=== PATIENT | female | born 1950 | race Caucasian/White ===

== ENCOUNTER 2018-04-12 14:56 | Emergency (ER) | payer MEDICARE ==
[~2018-04-12] VITALS: Ht 162.6 cm; Wt 72.0 kg
[~2018-04-12 14:56] MED LIST changes: -AMIT10TA6 PO; -ATOR20TA15 PO; -LEVS0.123 PO; -LISI-519 PO; -METO1TAB9 PO; -PROM25TA10 PO; -VENL75XR PO
[2018-04-12 15:02] VITALS: BP 189/96; PULSE 91; RESP 18; TEMP 98; O2SAT 97
[2018-04-12] MEDS ORDERED: LEVS0.123 PO (15:26)
[2018-04-12] MEDS ORDERED: AMIT10TA6 PO (15:26)
[2018-04-12] MEDS ORDERED: ATOR20TA15 PO (15:26)
[2018-04-12] MEDS ORDERED: METO1TAB9 PO (15:26)
[2018-04-12] MEDS ORDERED: NEXI40CA PO (15:26)
[2018-04-12] MEDS ORDERED: VENL75XR PO (15:26)
[2018-04-12] MEDS ORDERED: PROM25TA10 PO (15:26)
[2018-04-12] MEDS ORDERED: LISI-519 PO (15:26)
--- NOTE | 2018-04-12 15:26 | PD ---
HPI Chief Complaint: Abnormal Results Time Seen by Provider: 15:09 Travel History International Travel<30 days: No Contact w/Intl Traveler<30days: No Traveled to known affect area: No History of Present Illness HPI 67-year-old female presents to the emergency department sent by her primary care physician, Dr. Maradiaga, for hyperkalemia. She states she had routine labs done yesterday which showed a potassium 6.0. She had her labs redone today which showed a potassium of 6.5. Patient denies any symptoms or complaints. No headache. No chest pain shortness breath. No abdominal pain for no nausea, vomiting, diarrhea. She denies any history of kidney disease. She has history of mitral valve replacement with mechanical valve, CABG, IBS. No symptoms or complaints at this time. Moderate severity. PFSH Past Medical History Anxiety: Yes Depression: Yes Cancer: No Cardiovascular Problems: Yes (MVP) High Cholesterol: Yes Chemotherapy: No Chest Pain: No Cerebrovascular Accident: No Diabetes: No Endocrine: No Gastrointestinal Disorders: Yes (IRRITABLE BOWEL) GERD: Yes Glaucoma: No Genitourinary: No Hepatitis: No Hiatal Hernia: Yes Hypertension: Yes Immune Disorder: Yes (PSORIASIS) Musculoskeletal: No Neurologic: Yes Psychiatric: No Reproductive: No Respiratory: No Integumentary: No Migraines: No Radiation Therapy: No Seizures: No Thyroid Disease: No ?: Not Menopausal: Yes Ovarian Cysts: Yes Past Surgical History Abdominal Surgery: No AICD: No Appendectomy: Yes Cardiac Surgery: No Ear Surgery: No Endocrine Surgery: No Eye Surgery: Yes (CATARACT) Genitourinary Surgery: No Gynecologic Surgery: Yes (1969'S EXP LAP OVARIAN CYST WITH APPENDECTOMY) Oral Surgery: No Pacemaker: No Thoracic Surgery: No Other Surgery: Yes (SINUS SURGERY) Social History Alcohol Use: Yes (WEEKLY) Tobacco Use: No (FORMER SMOKER) Substance Use: No Allergies-Medications (Allergen,Severity, Reaction): Coded Allergies: Sulfa (Sulfonamide Antibiotics) (Unverified Allergy, Mild, 04/12/18) Uncoded Allergies: MYCINS (Allergy, Mild, 01/12/08) Reported Meds & Prescriptions Reported Meds & Active Scripts Active Reported Phenergan (Promethazine HCl) 25 Mg Tablet 25 Mg PO Q6H PRN Levsin (Hyoscyamine Sulfate) 0.125 Mg Tab 0.125 Mg PO DAILY Nexium (Esomeprazole DR) 40 Mg Capdr 40 Mg PO DAILY Lisinopril 5 Mg Tab 5 Mg PO DAILY Metoprolol Succinate ER 24 HR (Metoprolol Succinate) 50 Mg Tab 50 Mg PO DAILY Atorvastatin (Atorvastatin Calcium) 20 Mg Tab 20 Mg PO HS Amitriptyline (Amitriptyline HCl) 10 Mg Tab 10 Mg PO HS Effexor XR 24 HR (Venlafaxine HCl) 75 Mg Cap 225 Mg PO DAILY Review of Systems Except as stated in HPI: all other systems reviewed are Neg Physical Exam Narrative GENERAL: Well-nourished, well-developed female patient, ambulatory. Afebrile. SKIN: Focused skin assessment warm/dry. HEAD: Normocephalic. Atraumatic. EYES: No scleral icterus. No injection or drainage. NECK: Supple, trachea midline. No JVD or lymphadenopathy. CARDIOVASCULAR: Regular rate and rhythm without murmurs, gallops, or rubs. RESPIRATORY: Breath sounds equal bilaterally. No accessory muscle use. Lung sounds are clear to auscultation. GASTROINTESTINAL: Abdomen soft, non-tender, nondistended. MUSCULOSKELETAL: No cyanosis, or edema. BACK: Nontender without obvious deformity. No CVA tenderness. Data Data Last Documented VS Vital Signs Date Time Temp Pulse Resp B/P (MAP) Pulse Ox O2 Delivery O2 Flow Rate FiO2 04/12/18 15:02 98.0 91 18 189/96 (127) 97 Orders Orders Electrocardiogram (04/12/18 15:14) Complete Blood Count With Diff (04/12/18 15:14) Comprehensive Metabolic Panel (04/12/18 15:14) Magnesium (Mg) (04/12/18 15:14) Prothrombin Time / Inr (Pt) (04/12/18 15:14) Act Partial Throm Time (Ptt) (04/12/18 15:14) Labs Laboratory Tests Test 04/12/18 15:20 White Blood Count 8.6 TH/MM3 Red Blood Count 4.10 MIL/MM3 Hemoglobin 12.2 GM/DL Hematocrit 37.1 % Mean Corpuscular Volume 90.4 FL Mean Corpuscular Hemoglobin 29.8 PG Mean Corpuscular Hemoglobin Concent 32.9 % Red Cell Distribution Width 14.2 % Platelet Count 335 TH/MM3 Mean Platelet Volume 8.3 FL Neutrophils (%) (Auto) 44.7 % Lymphocytes (%) (Auto) 42.3 % Monocytes (%) (Auto) 9.6 % Eosinophils (%) (Auto) 2.6 % Basophils (%) (Auto) 0.8 % Neutrophils # (Auto) 3.8 TH/MM3 Lymphocytes # (Auto) 3.6 TH/MM3 Monocytes # (Auto) 0.8 TH/MM3 Eosinophils # (Auto) 0.2 TH/MM3 Basophils # (Auto) 0.1 TH/MM3 CBC Comment DIFF FINAL Differential Comment Prothrombin Time 10.0 SEC Prothromb Time International Ratio 1.0 RATIO Activated Partial Thromboplast Time 26.8 SEC Blood Urea Nitrogen 17 MG/DL Creatinine 0.67 MG/DL Random Glucose 97 MG/DL Total Protein 7.0 GM/DL Albumin 3.6 GM/DL Calcium Level 8.8 MG/DL Magnesium Level 2.0 MG/DL Alkaline Phosphatase 79 U/L Aspartate Amino Transf (AST/SGOT) 20 U/L Alanine Aminotransferase (ALT/SGPT) 30 U/L Total Bilirubin 0.1 MG/DL Sodium Level 140 MEQ/L Potassium Level 4.0 MEQ/L Chloride Level 107 MEQ/L Carbon Dioxide Level 25.0 MEQ/L Anion Gap 8 MEQ/L Estimat Glomerular Filtration Rate 88 ML/MIN [facility] Medical Decision Making Medical Screen Exam Complete: Yes Emergency Medical Condition: Yes Medical Record Reviewed: Yes Differential Diagnosis Hyperkalemia versus renal disease versus EKG changes Narrative Course 67-year-old female presents to the emergency department sent by her primary care physician for hyperkalemia. She denies any history of the same. She has no symptoms or complaints at this time. CBC, CMP, magnesium, PTT, PT/INR are ordered and pending. EKG shows sinus rhythm with first-degree AV block and occasional PVC, heart rate 82. CBC is unremarkable. CMP is unremarkable with a normal potassium of 4.0. Magnesium is 2.0. Coags are unremarkable Patient has no symptoms or complaints. Lab work is unremarkable including a normal potassium of 4.0. She is instructed to follow back up with her primary care physician for repeat lab work. She is stable to be discharged home. She agrees to this. Diagnosis Primary Impression: Normal exam Referrals: Primary Care Physician call for appointment Patient Instructions: General Instructions, Normal Exam (ED) Additional Instructions: Follow up with your primary care physician for repeat lab work. Your potassium was 4.0 on today's lab work. Return to the emergency department for any emergent complaints. Med/Other Pt SpecificInfo: No Change to Meds Disposition: 01 DISCHARGE HOME Condition: Stable Nicolle Cota April 12, 2018 15:26
[2018-04-12 16:20] LABS: AUTOMATED NEUTROPHIL # 3.8 TH/MM3 (1.8-7.7); BASOPHIL # 0.1 TH/MM3 (0-0.2); BASOPHIL % 0.8 % (0.0-2.0); EOSINOPHIL # 0.2 TH/MM3 (0-0.4); EOSINOPHIL % 2.6 % (0.0-4.0); HEMATOCRIT 37.1 % (35.0-46.0); HEMOGLOBIN 12.2 GM/DL (11.6-15.3); LYMPH % 42.3 % (9.0-44.0); LYMPHOCYTE # 3.6 TH/MM3 (1.0-4.8); MEAN CELL VOLUME 90.4 FL (80.0-100.0); MEAN CORPUSCULAR HEMOGLOBIN 29.8 PG (27.0-34.0); MEAN CORPUSCULAR HGB CONC 32.9 % (32.0-36.0); MEAN PLATELET VOLUME 8.3 FL (7.0-11.0); MONO % 9.6 % (0.0-8.0); MONOCYTE # 0.8 TH/MM3 (0-0.9); NEUT % 44.7 % (16.0-70.0); PLATELET COUNT 335 TH/MM3 (150-450); RED CELL DISTRIBUTION WIDTH 14.2 % (11.6-17.2); WHITE BLOOD COUNT 8.6 TH/MM3 (4.0-11.0)
[2018-04-12 16:40] LABS: ALBUMIN 3.6 GM/DL (3.4-5.0); ALT (GPT) 30 U/L (10-53); AST (GOT) 20 U/L (15-37); BLOOD UREA NITROGEN 17 MG/DL (7-18); CALCIUM 8.8 MG/DL (8.5-10.1); CHLORIDE 107 MEQ/L (98-107); CREATININE 0.67 MG/DL (0.50-1.00); GLOMERULAR FILTRATION RATE 88 ML/MIN (>89); GLUCOSE,RANDOM 97 MG/DL (74-106); SODIUM (NA) 140 MEQ/L (136-145)
[2018-04-12 16:43] LABS: ALKALINE PHOSPHATASE 79 U/L (45-117); TOTAL BILIRUBIN ADULT 0.1 MG/DL (0.2-1.0)
--- NOTE | 2018-04-13 22:33 | EKG ---
Date Performed: 04/12/2018 Time Performed: 15:37:35 PTAGE: 67 years EKG: Sinus rhythm WITH FIRST DEGREE AV BLOCK WITH OCCASIONAL VENTRICULAR PREMATURE COMPLEXES ABNORMAL ECG PREVIOUS TRACING : 07/07/2016 04.34 Since the previous tracing, no significant change noted DOCTOR: Mau Cooley Interpretating Date/Time 04/13/2018 22:32:12
== END 2018-04-12 17:58 | disposition home or self-care (01) ==
LOC: NEPC 14:56
DX: E87.5 Hyperkalemia (principal); E78.00 Pure hypercholesterolemia, unspecified; I10 Essential (primary) hypertension; K21.9 Gastro-esophageal reflux disease without esophagitis; F32.9 Major depressive disorder, single episode, unspecified; Z87.891 Personal history of nicotine dependence; Z95.1 Presence of aortocoronary bypass graft; Z95.2 Presence of prosthetic heart valve
CPT/HCPCS: 36415; 80053; 83735; 84132; 85025; 85610; 85730; 93005; 99284

== ENCOUNTER → 2018-04-12 | Outpatient (CLI) | payer MEDICARE ==
[~2018-04-12] MED LIST: AMIO200 PO; AMIT10TA13 PO; AMIT10TA6 PO; ASPI81 PO; ATOR20TA15 PO; ATOR20TA42 PO; DOCU1CAP39 PO; HYOS0.129 PO; LEVS0.123 PO; LISI-519 PO; METO1TAB9 PO; METO25 PO; NEXI40CA PO; PERC5TAB12 PO; PROM25TA10 PO; THERM PO; VENL-39 PO; VENL75XR PO; WARF2.5 PO
== END ==
LOC: PLAB 10:09
PROVIDERS: ATTEND Family Medicine
DX: E87.5 Hyperkalemia (principal)
CPT/HCPCS: 36415; 84132